=== PATIENT | male | born 1990 | race Caucasian/White ===

== ENCOUNTER 2018-12-29 06:06 | Emergency (ER) | payer SELFPAY ==
[~2018-12-29] VITALS: Ht 165.1 cm; Wt 79.4 kg
[2018-12-29 06:10] VITALS: BP 120/75
--- NOTE | 2018-12-29 06:10 | NUR ---
TO BED # 09 AMBULATORY
--- NOTE | 2018-12-29 06:10 | NUR ---
28 Y/O MALE PRESENTS TO ED WITH 1" LAC TO FOREHEAD X30 MIN. PT STATES WAKING UP. HAS RESISTANCE EXERCISE TOOL IN BEDROOM DOOR, IT SNAPPED BACK AND HIT PT IN FOREHEAD. PT DENIES ALOC, NAUSEA, OR VOMITING. BLEEDING CONTROLLED. ER MD AWARE. CONTINUE TO MONITOR.
--- NOTE | 2018-12-29 06:25 | NUR ---
LIDOCAIN 1% WITH EPI PULLED FROM [employer] LEDs PER DR REICH ORDERS.
[2018-12-29] MEDS ORDERED: LIDOCAINE/EPI 1% 1:100000 20 ML VIAL INJ ONE ×2 (06:35→06:40)
[2018-12-29] MEDS ORDERED: BACITRACIN OINT 500 UNITS/GM PKT TP ONE (06:45)
[2018-12-29 06:50] VITALS: BP 120/75
--- NOTE | 2018-12-29 06:50 | NUR ---
DISCHARGE PAPERS GIVEN TO PT. SUTURES INTACT. BLEEDING CONTROLLED. BACITRACIN APPLIED AND COVERED WITH GUAZE. 09/03 PAIN BUT TOLLERABLE. INSTRUCTED TO F/U WITH PCP OR TO RETURN TO THE ER IN 5 DAYS FOR SUTURE REMOVAL. PT VERBALLIZED UNDERSTANDING OF DC INSTRUCTIONS. ALL QUESTIONS ANSWERED.
== END 2018-12-29 06:50 | disposition home or self-care (01) ==
LOC: MED 06:06
DX: S01.81XA Laceration without foreign body of other part of head, initial encounter (principal); Y08.89XA Assault by other specified means, initial encounter; Y93.89 Activity, other specified; Y92.89 Other specified places as the place of occurrence of the external cause; Y99.8 Other external cause status
CPT/HCPCS: 12011; 99283; J2001

== ENCOUNTER 2019-01-07 06:05 | Emergency (ER) | payer SELFPAY ==
[~2019-01-07] VITALS: Ht 165.1 cm; Wt 79.4 kg
[2019-01-07 06:15] VITALS: BP 114/74
--- NOTE | 2019-01-07 06:15 | NUR ---
TO BED # 08 AMBULATORY
--- NOTE | 2019-01-07 06:24 | NUR ---
HERE FOR SUTURE REMOVAL. 3 SUTURES TO FOREHEAD. INCISION SITE HEALING WELL. DENIES FEVER. NO S/SX INFECTION.
--- NOTE | 2019-01-07 06:32 | NUR ---
Dr. Ledezma examining patient.
[2019-01-07 06:35] VITALS: BP 114/74
--- NOTE | 2019-01-07 06:35 | NUR ---
Patient discharged with v/s stable. Written and verbal after care instructions given and explained. Patient verbalized understanding. Ambulatory with steady gait. All questions addressed prior to discharge. Advised to follow up with PMD.
== END 2019-01-07 06:35 | disposition home or self-care (01) ==
LOC: MED 06:05
DX: S01.81XD Laceration without foreign body of other part of head, subsequent encounter (principal); X58.XXXD Exposure to other specified factors, subsequent encounter
CPT/HCPCS: 99281